=== PATIENT | male | born 1965 | race Caucasian/White ===

== ENCOUNTER → 2022-01-23 11:45 | Outpatient (BNVA) | payer SELFPAY | PROVIDERS: PCP Nurse Practitioner Family; Visit Provider Nurse Practitioner Family | DX: M25.571 Pain in right ankle and joints of right foot (principal) | CPT/HCPCS: 73610 ==

== ENCOUNTER 2024-06-04 13:42 | Emergency (ER) | payer SELFPAY ==
[2024-06-04 13:44] VITALS: BP 179/126; PULSE 66; TEMP 36.5; O2SAT 93
--- NOTE | 2024-06-04 13:47 | ECG_ITS ---
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 Measurements Intervals [place] Rate: 69 P: 18 IN: 188 QRS: -22 QRSD: 81 T: 81 QT: 376 QTc: 404 Interpretive Statements SINUS RHYTHM POSSIBLE ANTERIOR MYOCARDIAL INFARCTION , OF INDETERMINATE AGE [30 ms Q WAVE IN V3/V4, OR R < 0.2 mV IN V4] No previous ECG available for comparison Electronically Signed On 06-05-2024 12:29:09 NEURO PSYCH SALES SPECIALIST by Jose Maria Wesley M.D. [email or web address]
--- NOTE | 2024-06-04 13:52 | XRR_ITS ---
PROCEDURE INFORMATION: Exam: XR Chest Exam date and time: 06/04/2024 2:33 PM Age: 59 years old Clinical indication: Pain; Chest pressure; Additional info: Cp, low blood pressure TECHNIQUE: Imaging protocol: Radiologic exam of the chest. Views: 1 view. COMPARISON: No relevant prior studies available. FINDINGS: Lungs: Unremarkable. No consolidation or mass. Pleural spaces: Unremarkable. No pleural effusion. No pneumothorax. Heart/Mediastinum: Unremarkable. No cardiomegaly. Bones/joints: Unremarkable. XR/XR chest 1V portable 25004 IMPRESSION: No acute findings.
[2024-06-04 14:35] LABS: Basophils % 0.4 %; Eosinophils # 0.1 10^3/uL (0.0-0.8); Eosinophils % 0.9 %; Hematocrit 50.1 % (37-53); Lymphocytes # 1.8 10^3/uL (0.8-4.8); Lymphocytes % 20.3 %; Mean Corpuscular HGB Conc 33.1 g/dL (30-55); Mean Corpuscular Hemoglobin 29.9 pg (27-33); Mean Corpuscular Volume 90.1 fl (82-101); Mean Platelet Volume 9.2 fL (7.4-10.4); Monocytes # 0.9 10^3/uL (0.2-0.9); Monocytes % 9.6 %; Neutrophils # 6.21 10^3/uL (1.8-7.7); Neutrophils % 68.5 %; Nucleated Red Blood Cells % 0 %; Platelet Count 253 10^3/cmm (157-399); Red Blood Count 5.56 10^6/uL (3.85-5.65); Red Cell Distribution Width 13.3 % (12.1-15.1); White Blood Count 9.07 10^3/uL (3.29-11.43)
[2024-06-04 15:00] LABS: Troponin(5th) Baseline 15 ng/L (0-15)
[2024-06-04 15:16] LABS: Alanine Aminotransferase 40 U/L (0-41); Albumin Level 4.3 g/dL (3.5-5.2); Alkaline Phosphatase 113 U/L (40-130); Anion Gap 17.5 (5-19); Aspartate Amino Transferase 27 U/L (0-40); Blood Urea Nitrogen 14 mg/dL (8-23); Calcium 9.4 mg/dL (8.5-10.5); Carbon Dioxide 23 mmol/L (22-29); Chloride 99 mmol/L (98-107); Globulin 2.5 g/dL (1.3-4.6); Glomerular Filtration Rate 61.6 mL/min (90-130); Glucose 120 mg/dL (65-115); NT Pro B Type Natriuretic Pept 52 pg/mL (0-125); Osmolality Calculated 282 mOsm/kg (285-295); Potassium 4.5 mmol/L (3.5-5.1); Sodium 135 mmol/L (136-145); Total Bilirubin 0.7 mg/dL (0.15-1.2); Total Protein 6.8 g/dL (6.6-8.7)
--- NOTE | 2024-06-04 15:52 | ECG_ITS ---
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 Measurements Intervals [place] Rate: 70 P: 15 HI: 190 QRS: -14 QRSD: 86 T: 72 QT: 381 QTc: 414 Interpretive Statements SINUS RHYTHM POSSIBLE ANTERIOR MYOCARDIAL INFARCTION , OF INDETERMINATE AGE [30 ms Q WAVE IN V3/V4, OR R < 0.2 mV IN V4] Compared to ECG 06/04/2024 13:47:47 No significant changes Electronically Signed On 06-05-2024 12:34:49 REEL ASSEMBLER by Jose Maria Wesley M.D. [email or web address]
[2024-06-04 17:19] LABS: Troponin 5 2HR 14.39 ng/L (0-15)
[2024-06-04 17:21] LABS: Troponin 5 2HR Delta -0.61 ABS# (0-10)
--- NOTE | 2024-06-04 21:11 | W.ED.CHESTPA ---
HPI - Chest Pain General: Chief Complaint: Chest Pain Stated Complaint: chest pressure Time Seen by Provider: 06/04/24 16:51 Source: patient Mode of arrival: ambulatory Limitations: no limitations History of Present Illness: Patient is a 59-year-old male who presents the emergency department complaining of chest pressure beginning this morning. Patient states he went to one of his friends who is a it program engagement director, took his blood pressure found to be 280 systolic. Told patient to come to the emergency department for evaluation. Patient states the pain started when he woke up radiated to his left arm but was very mild. Denies any pertinent cardiac history, states he has had 2 strokes in the past but this was in his 20s. 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 He thinks that it is due to this. No shortness of breath, palpitations, syncope, or other pertinent medical history. MD complaint: chest pain Onset (ago): hour(s) Timing of current episode: constant Prior episodes: No Onset: during rest Pain location: left chest Pain radiation: left arm Severity: mild Quality: other (Pressure) Relieving factors: nothing Exacerbating factors: palpation and movement Context: trauma/injury Associated symptoms: Reports no associated symptoms; Deny abdominal pain, dyspnea, fever(s), nausea, palpitations or vomiting Related Data Allergies Allergy/AdvReac Type Severity Reaction Status Date / Time lidocaine Allergy Unknown Verified 06/04/24 13:53 Review of Systems General: Reports: 10 or more systems reviewed and unremarkable except in HPI and below Const: Denies: fever(s), chills or fatigue Eyes: Denies: change in vision ENMT: Denies: throat pain, ear or mastoid pain or nasal discharge Card: Reports: chest pain and other (Elevated blood pressure); Denies: palpitations, swelling of feet/ankles or lightheadedness Resp: Denies: dyspnea, productive cough or wheezing GI: Denies: abdominal pain, nausea, vomiting, diarrhea or constipation : Denies: flank pain, difficulty urinating, dysuria or urinary frequency Musc: Reports: extremity pain (Left arm); Denies: neck pain, back pain or joint pain Skin/Breast: Denies: rash Neuro: Denies: headache(s), numbness in extremities or weakness in extremities Physical Exam Const: COMMON NORMALS: no acute distress, patient oriented x3 and no limitations GENERAL APPEARANCE: cooperative, comfortable and well developed ORIENTATION/CONSCIOUSNESS: Yes awake, Yes oriented to person, Yes oriented to place and Yes oriented to time HENMT: COMMON NORMALS: normocephalic, atraumatic and hearing grossly normal bilaterally HEAD & SCALP: normocephalic and atraumatic Eye: COMMON NORMALS: Equal, round and reactive pupils present, EOMs intact bilaterally and conjunctivae normal CONJUNCTIVA: Yes conjunctivae normal PUPIL: Yes Equal, round and reactive pupils present Neck/C-Spine: COMMON NORMALS: full ROM, supple and no JVD Chest: OTHER: Reproducible tenderness to palpation to left anterolateral chest wall, just medial to nipple Resp: COMMON NORMALS: normal respiratory effort, No retractions, No use of accessory muscles and clear to auscultation bilaterally AUSCULTATION: clear to auscultation bilaterally Cardio: COMMON NORMALS: no JVD, regular rate, regular rhythm, No clicks present (Cardio), No murmurs present (Cardio) and No rub (Cardio) RATE: regular rate RHYTHM: regular rhythm Back/Pelvis: COMMON NORMALS: thoracic and lumbar spine normal to inspection, no thoracic nor lumbar tenderness and thoraco-lumbar ROM normal Neuro: COMMON NORMALS: patient oriented x3, moves all extremities, no focal motor deficits and no sensory deficits noted SENSORIUM/ORIENTATION: Yes oriented to person, Yes oriented to place and Yes oriented to time Skin: COMMON NORMALS: no rashes or lesions noted GENERAL SKIN EXAM: no rashes or lesions noted Course Vital Signs: Vital signs: Vital Signs Temperature 97.7 F 06/04/24 13:44 Pulse Rate 66 06/04/24 13:44 Blood Pressure 179/126 06/04/24 13:44 Pulse Oximetry 93 06/04/24 13:44 Oxygen Delivery Me thod Room Air 06/04/24 13:44 MDM - Chest Pain Medical Decision Making Patient reports an injury about a week ago, where he injured his thoracic region. Today was concerned with left chest pain but also associated elevated blood pressure that he states was 280 systolic at a friend/paramedics house. I suspect that he meant 180 systolic by this, blood pressure here on arrival 179/126. On recheck in the room after labs and imaging was noted to be down in the 130s systolic. No pertinent cardiac history. His EKG obtained and reviewed with physician showing normal sinus rhythm with no STEMI or other abnormalities. Troponin baseline and repeat was also unremarkable. Chest x-ray normal and lab work overall normal. Informed patient that he does still need evaluation on an outpatient basis, likely outpatient cardiac echo/stress test. Although there was nothing acute to admit for at this time we will consult cardiology, and I suspect that his pain is musculoskeletal with his recent trauma history. Probably needs to discuss blood pressures with primary care informed him to take a log of his blood pressures to report to them. Return precautions were given patient agrees with this plan and is ready for discharge home. Lab Data 06/04/24 14:30 06/04/24 14:30 Radiology Impressions Chest X-Ray 06/04/24 13:52 IMPRESSION: No acute findings. Laboratory Results WBC 9.07 10^3/uL (3.29-11.43) 06/04/24 14:30 RBC 5.56 10^6/uL (3.85-5.65) 06/04/24 14:30 Hgb 16.60 g/dL (11.27-16.99) 06/04/24 14:30 Hct 50.1 % (37-53) 06/04/24 14:30 MCV 90.1 fl (82-101) 06/04/24 14:30 MCH 29.9 pg (27-33) 06/04/24 14:30 MCHC 33.1 g/dL (30-55) 06/04/24 14:30 RDW 13.3 % (12.1-15.1) 06/04/24 14:30 Plt Count 253 10^3/cmm (157-399) 06/04/24 14:30 MPV 9.2 fL (7.4-10.4) 06/04/24 14:30 Neut % (Auto) 68.5 % 06/04/24 14:30 Lymph % (Auto) 20.3 % 06/04/24 14:30 [place] % (Auto) 9.6 % 06/04/24 14:30 Eos % (Auto) 0.9 % 06/04/24 14:30 Baso % (Auto) 0.4 % 06/04/24 14:30 Neut # (Auto) 6.21 10^3/uL (1.8-7.7) 06/04/24 14:30 Lymph # (Auto) 1.8 10^3/uL (0.8-4.8) 06/04/24 14:30 [place] # (Auto) 0.9 10^3/uL (0.2-0.9) 06/04/24 14:30 Eos # (Auto) 0.1 10^3/uL (0.0-0.8) 06/04/24 14:30 Baso # (Auto) 0.0 10^3/uL (0.0-0.1) 06/04/24 14:30 Nucleated RBC % (auto) 0 % 06/04/24 14:30 Nucleated RBCs # 0.0 /100WBC 06/04/24 14:30 Sodium 135 mmol/L (136-145) L 06/04/24 14:30 Potassium 4.5 mmol/L (3.5-5.1) 06/04/24 14:30 Chloride 99 mmol/L (98-107) 06/04/24 14:30 Carbon Dioxide 23 mmol/L (22-29) 06/04/24 14:30 Anion Gap 17.5 (5-19) 06/04/24 14:30 BUN 14 mg/dL (8-23) 06/04/24 14:30 Creatinine 1.2 mg/dL (0.7-1.2) 06/04/24 14:30 GFR Calculation 61.6 mL/min (90-130) L 06/04/24 14:30 Glucose 120 mg/dL (65-115) H 06/04/24 14:30 Calculated Osmolality 282 mOsm/kg (285-295) L 06/04/24 14:30 Calcium 9.4 mg/dL (8.5-10.5) 06/04/24 14:30 Total Bilirubin 0.7 mg/dL (0.15-1.2) 06/04/24 14:30 AST 27 U/L (0-40) 06/04/24 14:30 ALT 40 U/L (0-41) 06/04/24 14:30 Alkaline Phosphatase 113 U/L (40-130) 06/04/24 14:30 Troponin T Baseline 15 ng/L (0-15) 06/04/24 14:30 Troponin T 120 Minute 14.39 ng/L (0-15) 06/04/24 16:30 Delta Troponin T -0.61 ABS# (0-10) L 06/04/24 16:30 NT-Pro-B Natriuret Pep 52 pg/mL (0-125) 06/04/24 14:30 Total Protein 6.8 g/dL (6.6-8.7) 06/04/24 14:30 Albumin 4.3 g/dL (3.5-5.2) 06/04/24 14:30 Globulin 2.5 g/dL (1.3-4.6) 06/04/24 14:30 All radiology interpretation(s) finalized by discharge Discharge Plan Discharge Patient Disposition: Home Clinical Impression: Chest pain Condition: Stable Discharge Orders: Discharge ED (Routine); Ordered 06/04/24 Ordered By: Taqueria Galvez Referrals: Gladys Lares [Primary Care Provider] - Patient Instructions: Chest Pain (ED) Activity Restrictions/Additional Instructions: Please follow-up with primary care as discussed. Return with any recurrence of chest pain or breathing difficulties, or other concerning symptoms. Coding Level of Care Code ED Multi Punch Operator for Edward Dean
== END 2024-06-04 17:33 | disposition home or self-care (01) ==
PROVIDERS: Emergency Medicine; Emergency Provider Physician Assistant; PCP Nurse Practitioner Family
DX: R07.89 Other chest pain (principal)
CPT/HCPCS: 36415; 71045; 80053; 83880; 84484; 85025; 93005; 93010; 99285